=== PATIENT | male | born 1985 | race American Indian/Alaskan Native ===

== ENCOUNTER 2019-12-08 19:49 | Inpatient (IN) | payer SELFPAY ==
[2019-12-08] MEDS ORDERED: SODIUM CHLORIDE 0.9% 1000 ML 1,000 ML IV ONE ×2 (20:02→21:51)
[2019-12-08] MEDS ORDERED: ONDANSETRON 4 MG/2 ML INJ IV ONE (20:02)
--- NOTE | 2019-12-08 20:06 | Emergency Department Report ---
ED General Adult HPI - General Stated complaint: HYPERGLYCEMIA Time Seen by Provider: 12/08/19 19:58 Source: patient, EMS Mode of arrival: Ambulatory Limitations: No Limitations - History of Present Illness Initial comments: CC: "I feel sick. My sugar is high." HPI: Seven is a 34 yo male with hx of IDDM for the past 2 years. He has not taken his insulin shot in one day. He has nausea/vomiting. He just feels sick. He takes regular insulin as needed. Denies pain. He ran out of insulin on yesterday. He was brought in by EMS. He told EMS and girlfriend that he had jaime tral chest pain. Achy pain. No radiation. Gradual onset. Moderate in severity. Blood glucose was "high" according to EMS. -: Gradual, days(s) (1) Location: abdomen Consistency: constant Improves with: none Worsens with: none Associated Symptoms: malaise, nausea/vomiting - Related Data Allergies Allergy/AdvReac Type Severity Reaction Status Date / Time No Known Allergies Allergy Verified 12/08/19 21:56 ED Review of Systems ROS: Stated complaint: HYPERGLYCEMIA Other details as noted in HPI Comment: All other systems reviewed and negative Constitutional: malaise. denies: fever Cardiovascular: denies: chest pain Gastrointestinal: nausea, vomiting. denies: abdominal pain ED Past Medical Hx - Past Medical History Previous Medical History?: Yes Hx Diabetes: Yes - Surgical History Past Surgical History?: No - Family History Family history: diabetes - Social History Smoking Status: Current Every Day Smoker Substance Use Type: Alcohol, Marijuana ED Physical Exam - General Limitations: No Limitations General appearance: alert, in no apparent distress, other (appears uncomfortable but eating chocolate zinger) - Head Head exam: Present: atraumatic, normocephalic - Eye Eye exam: Present: normal appearance - ENT ENT exam: Present: mucous membranes dry (no lesions in the oropharyx) - Neck Neck exam: Present: normal inspection, full ROM. Absent: tenderness, meningismus - Respiratory Respiratory exam: Present: normal lung sounds bilaterally. Absent: respiratory distress, wheezes, rales, rhonchi - Cardiovascular Cardiovascular Exam: Present: normal rhythm, tachycardia, normal heart sounds. Absent: systolic murmur, diastolic murmur, rubs, gallop - GI/Abdominal GI/Abdominal exam: Present: soft, normal bowel sounds. Absent: distended, tenderness, guarding, rebound - Rectal Rectal exam: Present: deferred - Extremities Exam Extremities exam: Present: normal inspection - Neurological Exam Neurological exam: Present: alert, oriented X3 - Psychiatric Psychiatric exam: Present: normal affect, normal mood - Skin Skin exam: Present: warm, dry, intact, normal color. Absent: rash ED Course Vital Signs 12/08/19 12/08/19 12/08/19 21:45 21:46 21:47 Temperature 97.6 F Pulse Rate 127 H 111 H 120 H Pulse Rate [ Anterior Throughout] Respiratory 17 23 Rate Respiratory Rate [Anterior Throughout] Blood Pressure 86/32 100/36 O2 Sat by Pulse 96 96 Oximetry 12/08/19 12/08/19 21:48 22:26 Temperature Pulse Rate Pulse Rate [ 85 Anterior Throughout] Respiratory 23 Rate Respiratory 22 Rate [Anterior Throughout] Blood Pressure O2 Sat by Pulse Oximetry ED Medical Decision Making - Lab Data Result diagrams: 12/08/19 20:23 12/08/19 21:59 Laboratory Results - last 24 hr 12/08/19 12/08/19 12/08/19 20:23 20:23 20:23 WBC 18.8 H RBC 4.39 Hgb 14.8 Hct 52.5 H MCV 120 H MCH 34 H MCHC 28 L RDW 15.8 H Plt Count 277 Add Manual Diff Complete Total Counted 100 Seg Neuts % (Manual) 89.0 H Band Neutrophils % 0 Lymphocytes % (Manual) 4.0 L Reactive Lymphs % (Man) 0 Monocytes % (Manual) 7.0 Eosinophils % (Manual) 0 Basophils % (Manual) 0 Metamyelocytes % 0 Myelocytes % 0 Promyelocytes % 0 Blast Cells % 0 Nucleated RBC % Not Reportable Seg Neutrophils # Man 16.7 H Band Neutrophils # 0.0 Lymphocytes # (Manual) 0.8 L Abs React Lymphs (Man) 0.0 Monocytes # (Manual) 1.3 H Eosinophils # (Manual) 0.0 Basophils # (Manual) 0.0 Metamyelocytes # 0.0 Myelocytes # 0.0 Promyelocytes # 0.0 Blast Cells # 0.0 WBC Morphology Not Reportable Hypersegmented Neuts Not Reportable Hyposegmented Neuts Not Reportable Hypogranular Neuts Not Reportable Smudge Cells Not Reportable Toxic Granulation Not Reportable Toxic Vacuolation Not Reportable Dohle Bodies Not Reportable Pelger-Huet Anomaly Not Reportable Renaldo Rods Not Reportable Platelet Estimate Consistent w auto Clumped Platelets Not Reportable Plt Clumps, EDTA Not Reportable Large Platelets Not Reportable Giant Platelets Not Reportable Platelet Satelliting Not Reportable Plt Morphology Comment Not Reportable RBC Morphology Normal Dimorphic RBCs Not Reportable Polychromasia Not Reportable Hypochromasia Not Reportable Poikilocytosis Not Reportable Anisocytosis Not Reportable Microcytosis Not Reportable Macrocytosis Not Reportable Spherocytes Not Reportable Pappenheimer Bodies Not Reportable Sickle Cells Not Reportable Target Cells Not Reportable Tear Drop Cells Not Reportable Ovalocytes Not Reportable Helmet Cells Not Reportable [place] Bodies Not Reportable [place] Rings Not Reportable Sayre Cells Not Reportable Bite Cells Not Reportable Crenated Cell Not Reportable Elliptocytes Not Reportable Acanthocytes (Spur) Not Reportable Rouleaux Not Reportable Hemoglobin C Crystals Not Reportable Schistocytes Not Reportable Malaria parasites Not Reportable Michael Bodies Not Reportable Hem Pathologist Commnt No VBG pH 7.159 L* Sodium 124 L Potassium 7.7 H* Chloride 75.8 L Carbon Dioxide 9 L* Anion Gap 47 BUN 68 H Creatinine 3.9 H Estimated GFR 18 BUN/Creatinine Ratio 17 Glucose 1771 H* Calcium 9.9 Total Bilirubin Direct Bilirubin Indirect Bilirubin AST ALT Alkaline Phosphatase Troponin T Total Protein Albumin Albumin/Globulin Ratio Triglycerides Cholesterol LDL Cholesterol Direct HDL Cholesterol Cholesterol/HDL Ratio Lipase 12/08/19 12/08/19 12/08/19 20:23 20:23 21:59 WBC RBC Hgb Hct MCV MCH MCHC RDW Plt Count Add Manual Diff Total Counted Seg Neuts % (Manual) Band Neutrophils % Lymphocytes % (Manual) Reactive Lymphs % (Man) Monocytes % (Manual) Eosinophils % (Manual) Basophils % (Manual) Metamyelocytes % Myelocytes % Promyelocytes % Blast Cells % Nucleated RBC % Seg Neutrophils # Man Band Neutrophils # Lymphocytes # (Manual) Abs React Lymphs (Man) Monocytes # (Manual) Eosinophils # (Manual) Basophils # (Manual) Metamyelocytes # Myelocytes # Promyelocytes # Blast Cells # WBC Morphology Hypersegmented Neuts Hyposegmented Neuts Hypogranular Neuts Smudge Cells Toxic Granulation Toxic Vacuolation Dohle Bodies Pelger-Huet Anomaly Renaldo Rods Platelet Estimate Clumped Platelets Plt Clumps, EDTA Large Platelets Giant Platelets Platelet Satelliting Plt Morphology Comment RBC Morphology Dimorphic RBCs Polychromasia Hypochromasia Poikilocytosis Anisocytosis Microcytosis Macrocytosis Spherocytes Pappenheimer Bodies Sickle Cells Target Cells Tear Drop Cells Ovalocytes Helmet Cells [place] Bodies [place] Rings Tacho Cells Bite Cells Crenated Cell Elliptocytes Acanthocytes (Spur) Rouleaux Hemoglobin C Crystals Schistocytes Malaria parasites Michael Bodies Hem Pathologist Commnt VBG pH Sodium 121 L Potassium 8.3 H* Chloride 74.0 L Carbon Dioxide 9 L* Anion Gap 46 BUN 71 H Creatinine 4.2 H Estimated GFR 16 BUN/Creatinine Ratio 17 Glucose 1739 H* Calcium 9.2 Total Bilirubin 0.40 Direct Bilirubin 0.3 H Indirect Bilirubin 0.1 AST 52 H ALT 51 Alkaline Phosphatase 110 Troponin T 0.046 H Total Protein 7.6 Albumin 4.0 Albumin/Globulin Ratio 1.1 Triglycerides 395 H Cholesterol 260 H LDL Cholesterol Direct 99 HDL Cholesterol 106 H Cholesterol/HDL Ratio 2.45 Lipase 142 H - Radiology Data Radiology results: report reviewed Chest radiograph: No acute findings according to radiology impression - Medical Decision Making Mr. Shore has severe DKA with acute kidney injury acute hyperkalemia. Treated w ith insulin infusion. Hyperkalemia therapy also initiated in the emergency department. Admitted to ICU in critical condition Critical Care Time: Yes Critical care attestation.: If time is entered above; I have spent that time in minutes in the direct care of this critically ill patient, excluding procedure time. 40 minutes of critical care time excluding procedures were used in The patient. Patient required multiple reassessments and interventions. I consulted the electronic medical record. ED Disposition Clinical Impression: Diabetic ketoacidosis, Acute kidney injury, Acute hyperkalemia Disposition: OP ADMIT IP TO THIS HOSP Is pt being admited?: Yes Does the pt Need Aspirin: No Condition: Stable Instructions: Diabetic Ketoacidosis (ED)
--- NOTE | 2019-12-08 20:34 | XRay Report ---
CHEST 1 VIEW INDICATION / CLINICAL INFORMATION: chest pain. COMPARISON: None available. FINDINGS: SUPPORT DEVICES: None. HEART / MEDIASTINUM: No significant abnormality. LUNGS / PLEURA: No significant pulmonary or pleural abnormality. No pneumothorax. ADDITIONAL FINDINGS: No significant additional findings. IMPRESSION: 1. No significant change Signer Name: Tristen Rivera MD Signed: 12/08/2019 8:29 PM Workstation Name: [id number]
[2019-12-08 20:56] LABS: Mean Corpuscular HGB Conc 28 % (32-34); Platelet Count 277 K/mm3 (140-440); Red Blood Count 4.39 M/mm3 (3.65-5.03); Red Cell Distribution Width 15.8 % (13.2-15.2)
[2019-12-08 20:59] LABS: Hematocrit 52.5 % (35.5-45.6); Hemoglobin 14.8 gm/dl (11.8-15.2); Mean Corpuscular Volume 120 fl (84-94)
[2019-12-08 21:15] LABS: Calcium 9.9 mg/dL (8.4-10.2)
[2019-12-08 21:19] LABS: Bilirubin,Direct 0.3 mg/dL (0-0.2)
[2019-12-08] MEDS ORDERED: INSULIN REGULAR, HUMAN 100 UNITS/1 ML IV ONE (21:52)
[2019-12-08] MEDS ORDERED: CALCIUM GLUCONATE 1,000 MG in SODIUM CHLORIDE 0.9% 100 ML IV ONE (21:54)
[2019-12-08] MEDS ORDERED: ALBUTEROL 2.5 MG/3 ML NEBU IH ONE (21:54)
[2019-12-08] MEDS ORDERED: SODIUM BICARB 8.4% 50 MEQ/50 ML SYRINGE IV ONE (21:54)
[2019-12-08 22:04] LABS: Chol/HDL Ratio 2.45 %
[2019-12-08 22:21] LABS: Basophils % (Manual) 0 % (0.0-1.8); Eosinophils % (Manual) 0 % (0.0-4.3); Total Cells Counted 100
[2019-12-08 22:22] LABS: Platelet Estimate Consistent w Auto; RBC Morphology Normal
[2019-12-08 22:36] LABS: Calcium 9.2 mg/dL (8.4-10.2)
[2019-12-08] MEDS ORDERED: DEXTROSE 50% IN WATER (25GM) 50 ML SYRINGE IV PRN (22:41)
[2019-12-08] MEDS ORDERED: D5W/0.45% NACL/KCL 20 MEQ 20 MEQ/1,000 ML BAG IV SCH (23:00)
[2019-12-08] MEDS ORDERED: INSULIN REGULAR, HUMAN 100 UNITS in SODIUM CHLORIDE 0.9% 99 ML IV SCH ×2 (23:00)
[2019-12-08] MEDS ORDERED: LORazepam 2 MG/ML VIAL IV PRN (23:02)
[2019-12-08] MEDS ORDERED: chlordiazePOXIDE 25 MG CAP PO PRN (23:02)
[2019-12-08] MEDS ORDERED: LORazepam 2 MG TAB PO PRN (23:02)
--- NOTE | 2019-12-08 23:38 | History and Physical Report ---
History of Present Illness Date of examination: 12/08/19 Date of admission: 12/08/2019 Chief complaint: Nausea vomiting History of present illness: 34-year-old -[place] male with known history of diabetes mellitus was brought into the emergency room today with nausea and vomiting and abnormally elevated blood glucose. Patient indicates that he ran out of his insulin and has not had his insulin in the past 24 hours. He has also had some abdominal pain and mild chest discomfort. He denies any fever or chills, denies any headache or dizziness. He however indicates that he just does not feel well. Upon arrival in the emergency room blood glucose was quite elevated in the 1700s. He was found to be in DKA and was subsequently started on insulin drip a nd IV fluid. Was also found to be hyperkalemic and has been given sodium bicarbonate, calcium gluconate and insulin injection. Past History Past Medical History: diabetes Past Surgical History: No surgical history Social history: smoking, alcohol abuse Family history: diabetes Medications and Allergies Allergies Allergy/AdvReac Type Severity Reaction Status Date / Time No Known Allergies Allergy Verified 12/08/19 21:56 Home Medications Medication Instructions Recorded Confirmed Last Taken Type No Known Home Medications [No 12/09/19 12/09/19 Unknown History Reported Home Medications] Active Meds: Active Medications Dextrose (D50w (25gm) Syringe) 0 ml IV Q30MIN PRN; Protocol PRN Reason: Hypoglycemia Insulin Human Regular 100 (units/ Sodium Chloride) 100 mls @ 1 mls/hr IV TITR CODY; Protocol Last Admin: 12/08/19 23:17 Dose: 8 units/hr, 8 mls/hr Documented by: Potassium Chloride/Dextrose/Sod Cl (D5w/0.45% Nacl/Kcl 20 Meq) 20 meq in 1,000 mls @ 125 mls/hr IV DIRECT CODY Review of Systems Constitutional: no fever, no chills Cardiovascular: no chest pain, no palpitations Respiratory: no cough, no hemoptysis, no shortness of breath Gastrointestinal: abdominal pain, nausea, vomiting Genitourinary Male: no dysuria, no hematuria Musculoskeletal: no neck stiffness, no low back pain Integumentary: no rash, no pruritis Neurological: no weakness, no headaches Exam - Constitutional Vitals: Temp Pulse Resp BP Pulse Ox 97.6 F 84 18 138/78 98 12/08/19 21:47 12/08/19 23:00 12/08/19 23:00 12/08/19 23:00 12/08/19 23:00 General appearance: Present: no acute distress, well-nourished - EENT Eyes: Present: PERRL, EOM intact ENT: hearing intact, clear oral mucosa, dentition normal - Neck Neck: Present: supple, normal ROM - Respiratory Respiratory effort: normal Respiratory: bilateral: CTA - Cardiovascular Rhythm: regular Heart Sounds: Present: S1 & S2 - Extremities Extremities: no ischemia, pulses intact, No edema Peripheral Pulses: within normal limits - Abdominal General gastrointestinal: Present: soft, non-tender, non-distended - Integumentary Integumentary: Present: clear, warm, dry - Musculoskeletal Musculoskeletal: strength equal bilaterally, generalized weakness - Psychiatric Psychiatric: appropriate mood/affect, intact judgment & insight, cooperative - Neurologic Neurologic: CNII-XII intact Results - Labs CBC & Chem 7: 12/08/19 20:23 12/09/19 01:50 Labs: Abnormal lab results 12/08/19 12/08/19 12/08/19 Range/Units 20:23 20:23 20:23 WBC 18.8 H (4.5-11.0) K/mm3 Hct 52.5 H (35.5-45.6) % MCV 120 H (84-94) fl MCH 34 H (28-32) pg MCHC 28 L (32-34) % RDW 15.8 H (13.2-15.2) % Seg Neuts % (Manual) 89.0 H (40.0-70.0) % Lymphocytes % (Manual) 4.0 L (13.4-35.0) % Seg Neutrophils # Man 16.7 H (1.8-7.7) K/mm3 Lymphocytes # (Manual) 0.8 L (1.2-5.4) K/mm3 Monocytes # (Manual) 1.3 H (0.0-0.8) K/mm3 VBG pH 7.159 L* (7.320-7.420) Sodium 124 L (137-145) mmol/L Potassium 7.7 H* (3.6-5.0) mmol/L Chloride 75.8 L (98-107) mmol/L Carbon Dioxide 9 L* (22-30) mmol/L BUN 68 H (9-20) mg/dL Creatinine 3.9 H (0.8-1.5) mg/dL Glucose 1771 H* (75-100) mg/dL Phosphorus (2.5-4.5) mg/dL Magnesium (1.7-2.3) mg/dL Direct Bilirubin (0-0.2) mg/dL AST (5-40) units/L Troponin T (0.00-0.029) ng/mL Triglycerides (2-149) mg/dL Cholesterol (50-199) mg/dL HDL Cholesterol (40-59) mg/dL Lipase (13-60) units/L 12/08/19 12/08/19 12/08/19 Range/Units 20:23 20:23 21:59 WBC (4.5-11.0) K/mm3 Hct (35.5-45.6) % MCV (84-94) fl MCH (28-32) pg MCHC (32-34) % RDW (13.2-15.2) % Seg Neuts % (Manual) (40.0-70.0) % Lymphocytes % (Manual) (13.4-35.0) % Seg Neutrophils # Man (1.8-7.7) K/mm3 Lymphocytes # (Manual) (1.2-5.4) K/mm3 Monocytes # (Manual) (0.0-0.8) K/mm3 VBG pH (7.320-7.420) Sodium 121 L (137-145) mmol/L Potassium 8.3 H* (3.6-5.0) mmol/L Chloride 74.0 L (98-107) mmol/L Carbon Dioxide 9 L* (22-30) mmol/L BUN 71 H (9-20) mg/dL Creatinine 4.2 H (0.8-1.5) mg/dL Glucose 1739 H* (75-100) mg/dL Phosphorus (2.5-4.5) mg/dL Magnesium (1.7-2.3) mg/dL Direct Bilirubin 0.3 H (0-0.2) mg/dL AST 52 H (5-40) units/L Troponin T 0.046 H (0.00-0.029) ng/mL Triglycerides 395 H (2-149) mg/dL Cholesterol 260 H (50-199) mg/dL HDL Cholesterol 106 H (40-59) mg/dL Lipase 142 H (13-60) units/L 12/08/19 Range/Units 22:27 WBC (4.5-11.0) K/mm3 Hct (35.5-45.6) % MCV (84-94) fl MCH (28-32) pg MCHC (32-34) % RDW (13.2-15.2) % Seg Neuts % (Manual) (40.0-70.0) % Lymphocytes % (Manual) (13.4-35.0) % Seg Neutrophils # Man (1.8-7.7) K/mm3 Lymphocytes # (Manual) (1.2-5.4) K/mm3 Monocytes # (Manual) (0.0-0.8) K/mm3 VBG pH (7.320-7.420) Sodium (137-145) mmol/L Potassium (3.6-5.0) mmol/L Chloride (98-107) mmol/L Carbon Dioxide (22-30) mmol/L BUN (9-20) mg/dL Creatinine (0.8-1.5) mg/dL Glucose (75-100) mg/dL Phosphorus 6.70 H (2.5-4.5) mg/dL Magnesium 3.30 H (1.7-2.3) mg/dL Direct Bilirubin (0-0.2) mg/dL AST (5-40) units/L Troponin T (0.00-0.029) ng/mL Triglycerides (2-149) mg/dL Cholesterol (50-199) mg/dL HDL Cholesterol (40-59) mg/dL Lipase (13-60) units/L Assessment and Plan - Patient Problems (1) Diabetic ketoacidosis Current Visit: No Status: Inactive Plan to address problem: Patient has been started on insulin drip and placed on DKA protocol. We will monitor closely in the intensive care unit. (2) Acute hyperkalemia Current Visit: No Status: Inactive Plan to address problem: He has had calcium gluconate, sodium bicarbonate and insulin injection. Will monitor potassium levels. (3) Acute kidney injury Current Visit: No Status: Inactive Plan to address problem: He has been placed on IV fluid will monitor chemistry closely. (4) DVT prophylaxis Current Visit: Yes Status: Acute Plan to address problem: Patient placed on subcutaneous heparin. (5) Full code status Current Visit: Yes Status: Acute
[2019-12-08 23:51] LABS: Bilirubin,Urine NEG (Negative); Blood,Urine MOD (Negative); Color,Urine Straw (Yellow); Mucus,Urine FEW /HPF; Protein,Urine <15 mg/dL mg/dL (Negative); Urobilinogen,Urine < 2.0 mg/dL (<2.0)
[2019-12-09 00:51] LABS: Calcium 8.9 mg/dL (8.4-10.2)
[2019-12-09 02:22] LABS: Calcium 9.2 mg/dL (8.4-10.2)
[2019-12-09 06:48] LABS: Calcium 9.7 mg/dL (8.4-10.2)
[2019-12-09] MEDS ORDERED: DEXTROSE 50% IN WATER (25GM) 50 ML SYRINGE IV ONE (07:14)
[2019-12-09 08:42] LABS: Calcium 10.3 mg/dL (8.4-10.2)
[2019-12-09 08:45] LABS: Calcium 10.4 mg/dL (8.4-10.2)
[2019-12-09 09:15] LABS: Calcium 9.9 mg/dL (8.4-10.2)
[2019-12-09] MEDS ORDERED: HEPARIN 5,000 UNIT/1 ML VIAL ONE (09:47)
[2019-12-09] MEDS: HEPARIN 5,000 UNIT/1 ML VIAL SUB-Q SCH ×3 (09:55→22:05)
[2019-12-09] MEDS ORDERED: SODIUM CHLORIDE 0.9% 1000 ML 1,000 ML IV ONE (10:00)
[2019-12-09] MEDS: INSULIN NPH, HUMAN 100 UNIT/1 ML SUB-Q ONE ×2 (10:04→13:13)
[2019-12-09] MEDS ORDERED: SODIUM CHLORIDE 0.9% 1000 ML 1,000 ML ONE (10:40)
--- NOTE | 2019-12-09 11:09 | Event Note ---
Date: 12/09/19 ICU admission initially requested for DKA management but Gap has closed and patient being clinically stable has been downgraded
--- NOTE | 2019-12-09 11:21 | Progress Note ---
Assessment and Plan Assessment and plan: 34-year-old man who presents to the hospital with elevated blood glucose he has type 1 diabetes he did not take insulin for 1 day. He was feeling sick having nausea and vomiting DKA Has now been weaned to subcutaneous insulins. Optimize insulins. Acute kidney injury due to vasomotor nephropathy Continue IV fluids, nephrology consulted DVT prophylaxis early ambulation hypernatremia; cont hypotonic IVF History Interval history: Review of systems Constitutional: No fevers, no malaise, no joint pains CVS: No chest pain, no orthopnea, no pedal edema GI: No abdominal pain, no diarrhea, no vomiting, no constipation Respiratory: , no wheezing, no coughing Hospitalist Physical - Physical exam Narrative exam: General.: Appears well, no distress, nontoxic HEENT: Moist mucous membranes, extraocular muscles intact, no lymphadenopathy Neck: supple Cardiac: S1-S2 heard Lungs: clear to auscultation bilaterally Abdomen: soft , nontender, nondistended, bowel sounds positive Extremities: no edema clubbing or cyanosis Skin: no rash or lesions Neurologic: no gross focal deficits Psych: calm, and cooperative - Constitutional Vitals: Temp Pulse Resp BP Pulse Ox 97.8 F 76 16 128/74 100 12/09/19 11:02 12/09/19 11:02 12/09/19 11:02 12/09/19 11:02 12/09/19 11:02 General appearance: Present: no acute distress, well-nourished Results - Labs CBC & Chem 7: 12/08/19 20:23 12/09/19 07:52 Labs: Laboratory Last Values WBC 18.8 K/mm3 (4.5-11.0) H 12/08/19 20: RBC 4.39 M/mm3 (3.65-5.03) 12/08/19 20:23 Hgb 14.8 gm/dl (11.8-15.2) 12/08/19 20: Hct 52.5 % (35.5-45.6) H 12/08/19 20:23 MCV 120 fl (84-94) H 12/08/19 20:23 MCH 34 pg (28-32) H 12/08/19 20: MCHC 28 % (32-34) L 12/08/19 20: RDW 15.8 % (13.2-15.2) H 12/08/19 20:23 Plt Count 277 K/mm3 (140-440) 12/08/19 20:23 Add Manual Diff Complete 12/08/19: Total Counted 100 12/08/19 20:23 Seg Neuts % (Manual) 89.0 % (40.0-70.0) H 12/08/19 20:23 Band Neutrophils % 0 % 12/08/19 20:23 Lymphocytes % (Manual) 4.0 % (13.4-35.0) L 12/08/19 20:23 Reactive Lymphs % (Man) 0 % 12/08/19 20:23 Monocytes % (Manual) 7.0 % (0.0-7.3) 12/08/19 20:23 Eosinophils % (Manual) 0 % (0.0-4.3) 12/08/19 20:23 Basophils % (Manual) 0 % (0.0-1.8) 12/08/19 20:23 Metamyelocytes % 0 % 12/08/19 20:23 Myelocytes % 0 % 12/08/19 20:23 Promyelocytes % 0 % 12/08/19 20:23 Blast Cells % 0 % 12/08/19 20:23 Nucleated RBC % Not Reportable 12/08/19 20: Seg Neutrophils # Man 16.7 K/mm3 (1.8-7.7) H 12/08/19 20:23 Band Neutrophils # 0.0 K/mm3 12/08/19 20:23 Lymphocytes # (Manual) 0.8 K/mm3 (1.2-5.4) L 12/08/19 20:23 Abs React Lymphs (Man) 0.0 K/mm3 12/08/19 20:23 Monocytes # (Manual) 1.3 K/mm3 (0.0-0.8) H 12/08/19 20:23 Eosinophils # (Manual) 0.0 K/mm3 (0.0-0.4) 12/08/19 20:23 Basophils # (Manual) 0.0 K/mm3 (0.0-0.1) 12/08/19 20:23 Metamyelocytes # 0.0 K/mm3 12/08/19 20:23 Myelocytes # 0.0 K/mm3 12/08/19 20:23 Promyelocytes # 0.0 K/mm3 12/08/19 20:23 Blast Cells # 0.0 K/mm3 12/08/19 20:23 WBC Morphology Not Reportable 12/08/19 20:23 Hypersegmented Neuts Not Reportable 12/08/19 20:23 Hyposegmented Neuts Not Reportable 12/08/19 20:23 Hypogranular Neuts Not Reportable 12/08/19 20:23 Smudge Cells Not Reportable 12/08/19 20:23 Toxic Granulation Not Reportable 12/08/19 20:23 Toxic Vacuolation Not Reportable 12/08/19 20:23 Dohle Bodies Not Reportable 12/08/19 20:23 Pelger-Huet Anomaly Not Reportable 12/08/19 20:23 Renaldo Rods Not Reportable 12/08/19 20:23 Platelet Estimate Consistent w auto 12/08/19 20:23 Clumped Platelets Not Reportable 12/08/19 20:23 Plt Clumps, EDTA Not Reportable 12/08/19 20:23 Large Platelets Not Reportable 12/08/19 20:23 Giant Platelets Not Reportable 12/08/19 20:23 Platelet Satelliting Not Reportable 12/08/19 20:23 Plt Morphology Comment Not Reportable 12/08/19 20:23 RBC Morphology Normal 12/08/19 20:23 Dimorphic RBCs Not Reportable 12/08/19 20:23 Polychromasia Not Reportable 12/08/19 20:23 Hypochromasia Not Reportable 12/08/19 20:23 Poikilocytosis Not Reportable 12/08/19 20:23 Anisocytosis Not Reportable 12/08/19 20:23 Microcytosis Not Reportable 12/08/19 20:23 Macrocytosis Not Reportable 12/08/19 20:23 Spherocytes Not Reportable 12/08/19 20:23 Pappenheimer Bodies Not Reportable 12/08/19 20:23 Sickle Cells Not Reportable 12/08/19 20:23 Target Cells Not Reportable 12/08/19 20:23 Tear Drop Cells Not Reportable 12/08/19 20:23 Ovalocytes Not Reportable 12/08/19 20:23 Helmet Cells Not Reportable 12/08/19 20:23 [place] Bodies Not Reportable 12/08/19 20:23 [place] Rings Not Reportable 12/08/19 20:23 [place] Cells Not Reportable 12/08/19 20:23 Bite Cells Not Reportable 12/08/19 20:23 Crenated Cell Not Reportable 12/08/19 20:23 Elliptocytes Not Reportable 12/08/19 20:23 Acanthocytes (Spur) Not Reportable 12/08/19 20:23 Rouleaux Not Reportable 12/08/19 20:23 Hemoglobin C Crystals Not Reportable 12/08/19 20:23 Schistocytes Not Reportable 12/08/19 20:23 Malaria parasites Not Reportable 12/08/19 20:23 Michael Bodies Not Reportable 12/08/19 20:23 Hem Pathologist Commnt No 12/08/19 20:23 VBG pH 7.159 (7.320-7.420) L* 12/08/19 20:23 Sodium 148 mmol/L (137-145) H 12/09/19 07:52 Potassium 4.2 mmol/L (3.6-5.0) 12/09/19 07:52 Chloride 106.2 mmol/L (98-107) 12/09/19 07:52 Carbon Dioxide 24 mmol/L (22-30) 12/09/19 07:52 Anion Gap 22 mmol/L 12/09/19 07:52 BUN 53 mg/dL (9-20) H 12/09/19 07:52 Creatinine 2.7 mg/dL (0.8-1.5) H 12/09/19 07:52 Estimated GFR 33 ml/min 12/09/19 07:52 BUN/Creatinine Ratio 20 % 12/09/19 07:52 Glucose 118 mg/dL (75-100) H 12/09/19 07:52 POC Glucose 171 (70-105) H 12/09/19 10:58 Hemoglobin A1c 10.8 % (4-6) H 12/08/19 20:23 Osmolality 396 Mosm/kg 12/08/19 22:27 Calcium 9.9 mg/dL (8.4-10.2) 12/09/19 07:52 Phosphorus 6.70 mg/dL (2.5-4.5) H 12/08/19 22:27 Magnesium 3.30 mg/dL (1.7-2.3) H 12/08/19 22:27 Total Bilirubin 0.40 mg/dL (0.1-1.2) 12/08/19 20: Direct Bilirubin 0.3 mg/dL (0-0.2) H 12/08/19 20:23 Indirect Bilirubin 0.1 mg/dL 12/08/19 20:23 AST 52 units/L (5-40) H 12/08/19 20: ALT 51 units/L (7-56) 12/08/19: Alkaline Phosphatase 110 units/L (35-129) 12/08/19: Troponin T 0.046 ng/mL (0.00-0.029) H 12/08/19: Total Protein 7.6 g/dL (6.3-8.2) 12/08/19 20: Albumin 4.0 g/dL (3.9-5) 12/08/19 20: Albumin/Globulin Ratio 1.1 % 12/08/19 20: Triglycerides 395 mg/dL (2-149) H 12/08/19 20: Cholesterol 260 mg/dL (50-199) H 12/08/19 20: LDL Cholesterol Direct 99 mg/dL (50-130) 12/08/19: HDL Cholesterol 106 mg/dL (40-59) H 12/08/19: Cholesterol/HDL Ratio 2.45 % 12/08/19: Lipase 142 units/L (13-60) H 12/08/19 20:23 Urine Color Straw (Yellow) 12/08/19: Urine Turbidity Clear (Clear) 12/08/19: Urine pH 5.0 (5.0-7.0) 12/08/19: Ur Specific [place] 1.020 (1.003-1.030) 12/08/19: Urine Protein <15 mg/dl mg/dL (Negative) 12/08/19: Urine Glucose (UA) >=500 mg/dL (Negative) 12/08/19:20 Urine Ketones 20 mg/dL (Negative) 12/08/19 23:20 Urine Blood Mod (Negative) 12/08/19 23: Urine Nitrite Neg (Negative) 12/08/19 23:20 Urine Bilirubin Neg (Negative) 12/08/19 23:20 Urine Urobilinogen < 2.0 mg/dL (<2.0) 12/08/19 23:20 Ur Leukocyte Esterase Neg (Negative) 12/08/19 23:20 Urine WBC (Auto) 1.0 /HPF (0.0-6.0) 12/08/19 23:20 Urine RBC (Auto) 2.0 /HPF (0.0-6.0) 12/08/19 23:20 U Epithel Cells (Auto) < 1.0 /HPF (0-13.0) 12/08/19 23:20 Urine Mucus Few /HPF 12/08/19 23:20 Active Medications - Current Medications Current Medications: Generic Name Dose Route Start Last Admin Trade Name Freq PRN Reason Stop Dose Admin Dextrose 0 ml 12/08/19 22:41 12/09/19 07:19 D50w (25gm) Syringe IV 50 ml Q30MIN PRN Administration Hypoglycemia Protocol Heparin Sodium (Porcine) 5,000 unit 12/09/19 06:00 12/09/19 09:55 Heparin SUB-Q 5,000 unit Q8HR CODY Administration Insulin Human Regular 100 100 mls @ 1 mls/hr 12/08/19 23:00 12/09/19 07:18 units/ Sodium Chloride IV 0 units/hr TITR CODY 0 mls/hr Titration Protocol 1 UNITS/HR Sodium Chloride 1,000 mls @ 125 mls/hr 12/09/19 10:00 12/09/19 11:01 Nacl 0.9% 1000 Ml IV 12/09/19 17:59 125 mls/hr ONCE ONE Administration Insulin Human Isoph/Insulin Regular 15 unit 12/09/19 17:00 Humulin 70/30 SUB-Q BIDDIAB CODY Insulin Human Lispro 0 unit 12/09/19 11:30 Humalog SUB-Q ACHS CODY Protocol Sodium Chloride 125 ml 12/09/19 12:00 Nacl 0.45% 1000 Ml IV DIRECT CODY
[2019-12-09] MEDS ORDERED: SODIUM CHLORIDE 0.45% 1000 ML IV SOLN IV SCH (12:00)
[2019-12-09] MEDS ORDERED: INSULIN LISPRO 100 UNIT/ML SUB-Q ONE ×2 (12:31→13:10)
[2019-12-09] MEDS: INSULIN LISPRO 100 UNIT/ML SUB-Q SCH ×3 (12:32→22:04)
[2019-12-09] MEDS: SODIUM CHLORIDE 0.45% 1000 ML 1,000 ML IV SCH ×2 (16:25→23:22)
--- NOTE | 2019-12-09 16:37 | Consultation ---
History of Present Illness - Reason for Consult acute renal failure - History of Present Illness 34-year-old with medical history significant for diabetes mellitus type 2 hypertension admitted with hyperglycemia found to have diabetic ketoacidosis and acute kidney injury he denies any NSAID use denies any fevers or chills denies any cough admission nausea and vomiting denies any abdominal pain he has not taken his insulin for the past 2 days prior to admission Past History Past Medical History: diabetes Past Surgical History: No surgical history Social history: smoking, alcohol abuse Family history: diabetes Medications and Allergies Allergies Allergy/AdvReac Type Severity Reaction Status Date / Time No Known Allergies Allergy Verified 12/08/19 21:56 Home Medications Medication Instructions Recorded Confirmed Last Taken Type No Known Home Medications [No 12/09/19 12/09/19 Unknown History Reported Home Medications] Active Meds: Active Medications Dextrose (D50w (25gm) Syringe) 0 ml IV Q30MIN PRN; Protocol PRN Reason: Hypoglycemia Last Admin: 12/09/19 07:19 Dose: 50 ml Documented by: Heparin Sodium (Porcine) (Heparin) 5,000 unit SUB-Q Q8HR CODY Last Admin: 12/09/19 09:55 Dose: 5,000 unit Documented by: Insulin Human Regular 100 (units/ Sodium Chloride) 100 mls @ 1 mls/hr IV TITR CODY; Protocol Last Titration: 12/09/19 07:18 Dose: 0 units/hr, 0 mls/hr Documented by: Sodium Chloride (Nacl 0.9% 1000 Ml) 1,000 mls @ 125 mls/hr IV ONCE ONE Stop: 12/09/19 17:59 Last Admin: 12/09/19 11:01 Dose: 125 mls/hr Documented by: Sodium Chloride (Nacl 0.45% 1000 Ml) 1,000 mls @ 150 mls/hr IV DIRECT CODY Last Admin: 12/09/19 16:25 Dose: 150 mls/hr Documented by: Insulin Human Isoph/Insulin Regular (Humulin 70/30) 15 unit SUB-Q BIDDIAB CODY Insulin Human Lispro (Humalog) 0 unit SUB-Q ACHS CODY; Protocol Last Admin: 12/09/19 16:29 Dose: Not Given Documented by: Review of Systems Constitutional: no weight loss, no weight gain, no fever, no chills Ears, nose, mouth and throat: no deferred, no ear pain Cardiovascular: no chest pain, no orthopnea Respiratory: no cough, no cough with sputum Gastrointestinal: nausea, vomiting, no abdominal pain Genitourinary Male: no dysuria, no hematuria Rectal: no pain, no incontinence Integumentary: no deferred, no rash, no pruritis Neurological: no head injury, no transient paralysis Psychiatric: no anxiety, no memory loss Endocrine: no cold intolerance, no heat intolerance Hematologic/Lymphatic: no easy bruising, no easy bleeding Allergic/Immunologic: no urticaria, no allergic rhinitis Exam - Vital Signs Vital signs: Vital Signs Pulse Resp BP Pulse Ox 127 H 17 86/32 96 12/08/19 21:45 12/08/19 21:45 12/08/19 21:45 12/08/19 21:45 - General Appearance General appearance: well-developed, well-nourished EENT: ATNC, PERRL Neck: Present: neck supple Respiratory: Clear to Ascultation Heart: regular, S1S2 Gastrointestinal: Present: normal, normoactive bowel sounds Integumentary: no rash Neurologic: no focal deficit, alert and oriented x3, CN 3-12 intact Psychiatric: mood/affect appropriate Results - Lab Results 12/08/19 20:23 12/09/19 07:52 Most recent lab results Calcium 9.9 mg/dL (8.4-10.2) 12/09/19 07:52 Phosphorus 6.70 mg/dL (2.5-4.5) H 12/08/19 22:27 Magnesium 3.30 mg/dL (1.7-2.3) H 12/08/19 22:27 - Image Kidney/bladder ultrasound: other (reviewed chest x-ray without pulmonary edema) Assessment and Plan - Patient Problems (1) Acute hypernatremia Current Visit: Yes Status: Acute Plan to address problem: Hypernatremia Likely iatrogenic secondary to saline infusions Changes to hypotonic solution Recheck renal function panel ensure access to water (2) Acute kidney injury Current Visit: Yes Status: Acute Plan to address problem: Acute kidney injury Baseline creatinine unknown creatinine peaked at 3.6 current creatinine is 2.7 Continue intravenous fluids Etiology secondary to volume depletion Recheck renal function panel (3) Diabetic ketoacidosis Current Visit: Yes Status: Acute Plan to address problem: Diabetic ketoacidosis Continue insulin until anion gap is closed Monitor fingerstick (4) Leukocytosis (leucocytosis) Current Visit: Yes Status: Acute Plan to address problem: Leukocytosis Afebrile. BLOOD cultures if febrile
[2019-12-09] MEDS: INSULIN NPH/REGULAR 70/30 INJ SUB-Q SCH (18:38)
[2019-12-10] MEDS: HEPARIN 5,000 UNIT/1 ML VIAL SUB-Q SCH (05:20)
[2019-12-10] MEDS: SODIUM CHLORIDE 0.45% 1000 ML 1,000 ML IV SCH (05:26)
[2019-12-10 06:12] LABS: Calcium 8.7 mg/dL (8.4-10.2)
--- NOTE | 2019-12-10 10:09 | Event Note ---
Date: 12/10/19 Patient alert, awake. Denies any lung problems. Chest xray reported no pulmonary and pleural problems. Patient admitted for DKA, bllod sugur improved. Anion gag 15. Patient has history of smoking 1 pack x 15 years. Counselled to stop smoking. Since patient does not have pulmonary problems at this time. Signing off the case. If patient needs any pulmonary help call us back. Ion Javier.
[2019-12-10] MEDS: INSULIN NPH/REGULAR 70/30 INJ SUB-Q SCH (10:13)
[2019-12-10] MEDS: INSULIN LISPRO 100 UNIT/ML SUB-Q SCH ×2 (10:13→13:47)
--- NOTE | 2019-12-10 12:32 | Discharge Summary ---
Providers - Providers Date of Admission: 12/08/19 22:06 Attending physician: ARACELI DAVID MD 12/08/19 22:41 Consult to Dietitian/Nutrition [CONS] Routine Physician Instructions: Reason For Exam: DKA Reason for Consult: Nutrition Recommendations Reason for Consult: Diet education 12/09/19 08:34 Consult to Physician [CONS] Routine Comment: Consulting Provider: MARLA RUBIO Physician Instructions: Reason For Exam: ICU headlight adjuster 12/09/19 14:00 Consult to Physician [CONS] Routine Comment: Consulting Provider: DOMINGUEZ MAHONEY Physician Instructions: Reason For Exam: sweta 12/09/19 16:44 Consult to Dietitian/Nutrition [CONS] Routine Physician Instructions: Reason For Exam: Reason for Consult: Poor oral intake Primary care physician: GRAPHIC MANAGER Hospitalization Condition: Stable Hospital course: 34-year-old man who presents to the hospital with elevated blood glucose he has type 1 diabetes he did not take insulin for 1 day because he ran out. After his glc got above >500, He was feeling sick having nausea and vomiting DKA received insulin drip followed by subcut insulin, resolve Acute kidney injury due to vasomotor nephropathy sp IV fluids, nephrology consult appreciated, recommended to drink 3L of water daily for next 3 days, op neph fup Hypokalemia; repleted DVT prophylaxis early ambulation Preventative health counseling performed for 17 minutes hypernatremia; received hypotonic IVF Disposition: DC-01 TO HOME OR SELFCARE Time spent for discharge: 33 mins Core Measure Documentation - Palliative Care Palliative Care/ Comfort Measures: Not Applicable - Core Measures Any of the following diagnoses?: none Exam - Constitutional Vitals: Temp Pulse Resp BP Pulse Ox 98.4 F 57 L 16 107/62 98 12/10/19 05:04 12/10/19 05:04 12/10/19 05:04 12/10/19 05:04 12/10/19 05:04 General appearance: Present: no acute distress, well-nourished - EENT Eyes: Present: PERRL ENT: hearing intact, clear oral mucosa - Neck Neck: Present: supple, normal ROM - Respiratory Respiratory effort: normal Respiratory: bilateral: CTA - Cardiovascular Heart Sounds: Present: S1 & S2. Absent: rub, click - Extremities Extremities: pulses symmetrical, No edema Peripheral Pulses: within normal limits - Abdominal General gastrointestinal: Present: soft, non-tender, non-distended, normal bowel sounds Male genitourinary: Present: normal - Integumentary Integumentary: Present: clear, warm, dry - Musculoskeletal Musculoskeletal: gait normal, strength equal bilaterally - Psychiatric Psychiatric: appropriate mood/affect, intact judgment & insight - Neurologic Neurologic: CNII-XII intact, moves all extremities Plan Follow up with: PRIMARY CARE,MD [Primary Care Provider] - 7 Days Prescriptions: Insulin Regular, Human [HumuLIN R] 0 - 12 unit SQ AC #1 vial Insulin NPH/Regular [Novolin 70/30] 13 unit SUB-Q BIDAC #1 vial
[2019-12-10] MEDS ORDERED: POTASSIUM CHLORIDE ER 20 MEQ TAB PO ONE (13:00)
[2019-12-10 14:36] VITALS: BP 126/93
--- NOTE | 2019-12-10 16:33 | Progress Note ---
Assessment and Plan - Patient Problems (1) Acute hypernatremia Current Visit: No Status: Acute Plan to address problem: Hypernatremia:resolved. Likely iatrogenic secondary to saline infusions Changes to hypotonic solution Recheck renal function panel ensure access to water (2) Acute kidney injury Current Visit: No Status: Acute Plan to address problem: Acute kidney injury Baseline creatinine unknown creatinine peaked at 3.6 current creatinine is 1.7 Continue intravenous fluids Etiology secondary to volume depletion Recheck renal function panel (3) Diabetic ketoacidosis Current Visit: No Status: Acute Plan to address problem: Diabetic ketoacidosis Continue insulin until anion gap is closed Monitor fingerstick (4) Leukocytosis (leucocytosis) Current Visit: No Status: Acute Plan to address problem: Leukocytosis Afebrile. BLOOD cultures if febrile Subjective Interval history: 34-year-old with medical history significant for diabetes mellitus type 2 hypertension admitted with hyperglycemia found to have diabetic ketoacidosis and acute kidney injury he denies any NSAID use denies any fevers or chills denies any cough admission nausea and vomiting denies any abdominal pain he has not taken his insulin for the past 2 days prior to admission Patient seen today Denies any edema currently on IVF no fevers or chills. Objective - Vital Signs Vital signs: Vital Signs - 12hr 12/10/19 12/10/19 05:04 12:19 Temperature 98.4 F 98.2 F Pulse Rate 57 L 71 Respiratory 16 15 Rate Blood Pressure 107/62 126/93 O2 Sat by Pulse 98 97 Oximetry - General Appearance General appearance: well-developed, well-nourished EENT: ATNC, PERRL, mucous membranes moist Neck: no JVD Respiratory: Present: Clear to Ascultation Cardiology: regular, S1S2 Gastrointestinal: normal, normoactive bowel sounds Integumentary: no rash Neurologic: alert and oriented x3, CN 3-12 intact Musculoskeletal: deferred Psychiatric: mood/affect appropriate - Lab 12/08/19 20:23 12/10/19 05:11 Most recent lab results Calcium 8.7 mg/dL (8.4-10.2) 12/10/19 05:11 Phosphorus 6.70 mg/dL (2.5-4.5) H 12/08/19 22:27 Magnesium 3.30 mg/dL (1.7-2.3) H 12/08/19 22:27 - Imaging Chest x-ray: image reviewed Medications & Allergies - Medications Allergies/Adverse Reactions: Allergies No Known Allergies Allergy (Verified 12/08/19 21:56) Home Medications: Home Medications Medication Instructions Recorded Confirmed Last Taken Type Insulin NPH/Regular [Novolin 70/30] 13 unit SUB-Q BIDAC #1 vial 12/10/19 Unknown Rx Insulin Regular, Human [HumuLIN R] 0 - 12 unit SQ AC #1 vial 12/10/19 Unknown Rx
== END 2019-12-10 14:45 | disposition home or self-care (01) | DRG 637 ==
LOC: ED 19:49 → CC1 22:06 → 3A 12-09 11:41
PROVIDERS: ADMIT Internal Medicine Geriatric Medicine; ATTEND Internal Medicine
DX: E11.10 Type 2 diabetes mellitus with ketoacidosis without coma (principal); N17.0 Acute kidney failure with tubular necrosis; E87.0 Hyperosmolality and hypernatremia; E11.65 Type 2 diabetes mellitus with hyperglycemia; E87.5 Hyperkalemia; D72.829 Elevated white blood cell count, unspecified; F17.210 Nicotine dependence, cigarettes, uncomplicated; F12.90 Cannabis use, unspecified, uncomplicated; I10 Essential (primary) hypertension; Z71.6 Tobacco abuse counseling; Z79.4 Long term (current) use of insulin; Z83.3 Family history of diabetes mellitus
CPT/HCPCS: 36415; 71045; 80048; 80061; 80076; 81001; 82805; 82962; 83036; 83690; 83735; 83930; 84100; 84484; 85007; 85025; 93005; 93010; 94644; 99406; G0378; J0610; J1644; J1815; J2405; J7030